=== PATIENT | male | born 1995 | race Caucasian/White ===

== ENCOUNTER 2021-09-13 10:50 | Observation (INO) | payer BC ==
[~2021-09-13] VITALS: Ht 182.9 cm; Wt 104.3 kg
[~2021-09-13 10:50] MED LIST: ZOFRAN ODT 4 MG4 MG SL
[2021-09-13 11:42] LABS: HEMOGLOBIN 15.9 gm/dl (14.0-17.5); RED BLOOD COUNT 4.99 M/UL (4.20-5.50); WHITE BLOOD COUNT 8.4 K/UL (4.5-11.0)
[2021-09-13 12:20] LABS: BUN/CREATININE RATIO 14 (0-10)
[2021-09-14 05:49] LABS: HEMOGLOBIN 14.3 gm/dl (14.0-17.5); RED BLOOD COUNT 4.53 M/UL (4.20-5.50)
[2021-09-14 06:06] LABS: WHITE BLOOD COUNT 4.3 K/UL (4.5-11.0)
[2021-09-14 06:22] LABS: BUN/CREATININE RATIO 12 (0-10)
[2021-09-15 09:08] LABS: HEMOGLOBIN 13.9 gm/dl (14.0-17.5); RED BLOOD COUNT 4.41 M/UL (4.20-5.50); WHITE BLOOD COUNT 4.1 K/UL (4.5-11.0)
[2021-09-15 09:18] LABS: BUN/CREATININE RATIO 10 (0-10)
[2021-09-15] MEDS ORDERED: AMOX TR-K CLV1 EAC4 PO (16:01)
[2021-09-15] MEDS ORDERED: LIDOCAINE PAIN1 EACH TOP (16:01)
[2021-09-15] MEDS ORDERED: PROTONIX40 MG PO (16:01)
[2021-09-15] MEDS ORDERED: ZOFRAN 4 MG TAB4 MG PO (16:01)
[2021-09-15] MEDS ORDERED: ACIDOPHILUS1 EACH PO (16:01)
[2021-09-15] MEDS ORDERED: K-TAB ER20 MEQ PO (16:16)
== END 2021-09-15 17:15 | disposition home or self-care (01) ==
LOC: ER1 10:50 → CDU 14:45 → MED SURG 4 16:07
PROVIDERS: Nurse Practitioner; Physician Assistant Medical; ADMIT Internal Medicine
DX: K56.7 Ileus, unspecified (principal); E87.6 Hypokalemia; E83.42 Hypomagnesemia; R50.9 Fever, unspecified; Z20.822 Contact with and (suspected) exposure to COVID-19
CPT/HCPCS: 0240U; 36415; 80048; 80053; 81001; 82150; 83605; 83690; 83735; 84132; 85025; 85027; 87040; 96372; 96374; 96375; 96376; 99285; C9113; G0378; J0696; J1335; J1650; J2270; J2405; J3475; J7030; Q9967